=== PATIENT | female | born 1990 | race African-American/Black ===

== ENCOUNTER 2017-12-08 17:31 | Emergency (ER) | payer SELFPAY ==
[2017-12-08 17:59] VITALS: BP 136/90; PULSE 70; RESP 16; TEMP 99.2; O2SAT 100
[2017-12-08 19:11] LABS: BILIRUBIN, URINE NEG (NEG); BLOOD, URINE TRACE (NEG); GLUCOSE,URINE NEG (NEG); KETONE, URINE NEG (NEG); NITRITE,URINE NEG (NEG); URINE COLOR YELLOW (YELLW/STRAW); URINE LEUKOCYTE ESTERASE TRACE (NEG)
[2017-12-08 19:15] LABS: BACTERIA, URINE RARE /hpf; RBC, URINE 0-3 /hpf (0-3); SQUAMOUS EPITHELIAL CELL URINE 0-5 /hpf (0-5)
[2017-12-08 19:23] VITALS: BP 110/66; PULSE 85; RESP 20; O2SAT 97
--- NOTE | 2017-12-08 20:07 | PD ---
HPI Chief Complaint: Seat Mender Problem/Complaint Time Seen by Provider: 20:04 Travel History International Travel<30 days: No Contact w/Intl Traveler<30days: No Traveled to known affect area: No History of Present Illness HPI 27-year-old female presents to the emergency department by private transportation for evaluation of vaginal irritation. Patient states last Thursday she started using a body wash and washing in the labial area and subsequently has developed irritation and redness and swelling. Patient thought she perhaps had a yeast infection so apply topical antifungal without symptomatic relief. Due to burning with urination and pruritus decides to present to the emergency department this time. No vaginal discharge. Patient denies fever chills. Patient denies . Patient rates her pain 0/10 intensity. Patient is not diabetic. PFSH Past Medical History Narrative Medical Negative past medical history; nursing notes reviewed Tetanus Vaccination: > 5 Years Influenza Vaccination: No ?: Unknown LMP: 11/24/17 Social History Alcohol Use: Yes (occ) Tobacco Use: No Allergies-Medications (Allergen,Severity, Reaction): Coded Allergies: No Known Drug Allergies (Verified Allergy, Unknown, 12/08/17) Reported Meds & Prescriptions Reported Meds & Active Scripts Active No Active Prescriptions or Reported Medications Review of Systems Except as stated in HPI: all other systems reviewed are Neg Physical Exam Narrative GENERAL: Well-developed nourished female no acute distress or respiratory distress SKIN: Warm and dry. HEAD: Normocephalic. EYES: No scleral icterus. No injection or drainage. NECK: Supple, trachea midline. No JVD or lymphadenopathy. CARDIOVASCULAR: Regular rate and rhythm without murmurs, gallops, or rubs. RESPIRATORY: Breath sounds equal bilaterally. No accessory muscle use. GASTROINTESTINAL: Abdomen soft, non-tender, nondistended. Pelvic exam: Normal external exam no redness induration or lesion; speculum exam mild mucosal edema erythema without vaginal discharge no caseating white discharge no blood no clots no tissue; bimanual exam no cervical motion tenderness no adnexal mass or tenderness no uterine enlargement. MUSCULOSKELETAL: No cyanosis, or edema. BACK: Nontender without obvious deformity. No CVA tenderness. Data Data Last Documented VS Vital Signs Date Time Temp Pulse Resp B/P (MAP) Pulse Ox O2 Delivery O2 Flow Rate FiO2 12/08/17 20:30 74 20 136/62 (86) 98 12/08/17 17:59 99.2 Orders Orders Urinalysis - C+S If Indicated (12/08/17 19:02) Gc And Chlamydia Pcr (12/08/17 19:34) Wet Prep Profile (12/08/17 19:34) Ed Urine Pregnancytest Poc (12/08/17 19:34) Ed Discharge Order (12/08/17 20:07) Labs Laboratory Tests Test 12/08/17 19:05 12/08/17 19:35 Urine Color YELLOW Urine Turbidity CLEAR Urine pH 6.0 Urine Specific [place] 1.010 Urine Protein NEG mg/dL Urine Glucose (UA) NEG mg/dL Urine Ketones NEG mg/dL Urine Occult Blood TRACE Urine Nitrite NEG Urine Bilirubin NEG Urine Urobilinogen 0.2 MG/DL Urine Leukocyte Esterase TRACE Urine RBC 0-3 /hpf Urine WBC 3-5 /hpf Urine Squamous Epithelial Cells 0-5 /hpf Urine Bacteria RARE /hpf Microscopic Urinalysis Comment CULT NOT INDICATED Clue Cells (Wet Prep) NONE SEEN Vaginal Trichomonas (Wet Prep) NONE SEEN Vaginal Yeast (Wet Prep) NONE SEEN MDM Medical Decision Making Medical Screen Exam Complete: Yes Emergency Medical Condition: Yes Medical Record Reviewed: Yes Differential Diagnosis Vaginal discharge, topical dermatitis/contact dermatitis, vaginosis, UTI, STI Narrative Course Patient with vaginal irritation after applying bath wash/body wash causing contact dermatitis/vaginosis specimens collected and sent for resulting urinalysis normal [id number] hCG negative wet prep is negative low suspicion for STI/STD PCR chlamydia and gonorrhea pending Patient encouraged to discontinue use of body wash to the labial area and to cleanse area with warm/cool water without soap product or body wash and to avoid medicinal douching. Patient is stable for outpatient management and follow-up with her charge weigher Diagnosis Primary Impression: Contact dermatitis Qualified Codes: L24.0 - Irritant contact dermatitis due to detergents Additional Impression: Vaginosis Referrals: Coach Wire[facility] call for appointment Patient Instructions: General Instructions Additional Instructions: Avoid any soaps or products directly to the affected area; cleanse area only with cold to warm water May use Benadryl or Zyrtec per package directions for symptoms of pruritus Avoid douching or other topical products to the area Follow-up with charge weigher/primary care provider Return to the emergency department for any concerns or change in condition May take as needed acetaminophen every 4 hours as needed for fever 100.4F or greater May use ibuprofen per package directions as needed for fever 100.4F or greater or for discomfort associated with inflammation Scripts No Active Prescriptions or Reported Meds Disposition: 01 DISCHARGE HOME Condition: Sunshine Yepez MD December 08, 2017 20:07
[2017-12-08 20:30] VITALS: BP 136/62
== END 2017-12-08 20:35 | disposition home or self-care (01) ==
LOC: PHED 17:31
DX: L24.89 Irritant contact dermatitis due to other agents (principal); N76.0 Acute vaginitis
CPT/HCPCS: 81001; 84703; 87210; 87491; 87591; 99283